=== PATIENT | male | born 1990 | race Two or more races ===

== ENCOUNTER 2018-12-01 17:52 | Observation (INO) ==
[2018-12-01 18:33] LABS: Basophils # 0.1 K/mm3 (0-0.2); Basophils % 0.7 % (0.1-2.0); Eosinophils # 0.3 K/mm3 (0.0-0.4); Eosinophils % 2.9 % (0.1-12.0); Hematocrit 43.8 % (42.0-52.0); Hemoglobin 14.3 g/dL (14.1-18.0); Lymphocytes # 3.2 K/mm3 (0.7-4.5); Lymphocytes % 29.9 % (10-50); Mean Corpuscular HGB Conc 32.7 g/dL (31.8-35.4); Mean Platelet Volume 6.4 fl (7.4-10.4); Monocytes # 0.8 K/mm3 (0.1-1.0); Neutrophils # 6.5 K/mm3 (1.8-7.8); Neutrophils % 59.4 % (37.0-80.0); Platelet Count 405 K/mm3 (142-424); Red Blood Count 4.47 M/mm3 (4.60-6.20); Red Cell Distribution Width 13.5 % (11.5-17.5); White Blood Count 10.9 K/mm3 (4.8-10.8)
[2018-12-01 18:47] LABS: Albumin Level 3.4 gm/dL (3.4-5.0); Calcium 8.7 mg/dL (8.5-10.1)
[2018-12-01 19:01] LABS: Microscopic, Urine URINE MICROSCOPIC (MICROSCOPIC)
[2018-12-01 19:02] LABS: Albumin/Globulin Ratio 0.9 (1.1-1.8); Anion Gap 17.7 mEq/L (5-15); Bilirubin,Total 0.2 mg/dL (0.2-1.0); Globulin 3.8 gm/dl (1.3-3.2); Potassium 3.7 mmoL/L (3.5-5.1); Total Protein,Serum 7.2 gm/dL (6.4-8.2)
[2018-12-01 19:02] LABS: Appearance,Urine CLEAR (Clear); Bilirubin,Urine Negative (Negative); Blood, Urine Negative (Negative); Color,Urine STRAW (Yellow); Glucose,Urine (UA) Negative (Negative); Ketones,Urine Negative (Negative); Leukocyte Esterase,Urine Negative (Negative); Protein,Urine Negative (Negative); Specific Gravity, Urine <= 1.005 (1.005-1.030); Urobilinogen,Urine 0.2 EU/dl (0.2)
--- NOTE | 2018-12-01 19:03 | Emergency Department Note ---
ED Disposition Clinical Impression: Diverticulitis, Colitis, Alcohol abuse Hematemesis Qualifiers: Nausea presence: unspecified Qualified Code(s): K92.0 - Hematemesis Disposition: Admitted as Observation Condition on Discharge: Fair - Critical Care Critical Care Time: No Attestation: On 12/01/18, the high probability of a clinically significant, sudden or life threatening deterioration of the following system(s) required my full and direct attention, intervention and personal management. The time I documented below is in addition to time spent performing reported procedures but includes the following listed in this critical care notation. Medical Decision Making - Abilio Inquiry Pt receiving controlled substance: Yes Abilio was queried for this patient: No Reason not queried -: Emergent pt cond-no time Risks and benefits of using a controlled substance: were not discussed with pt by me Vital Signs: 12/01/18 17:59 12/01/18 18:53 Temperature 97.9 F Temperature Source Oral Pulse Rate [Right Radial] 98 H 84 Respiratory Rate 18 18 Blood Pressure [Right Arm] 138/95 H 138/84 Blood Pressure Mean [Right Arm] 109 102 Blood Pressure Source [Right Arm] Automatic Cuff Automatic Cuff Blood Pressure Position [Right Arm] Sitting Sitting 02 Sat by Pulse Oximetry 99 97 Oxygen Delivery Method Room Air Room Air - Lab Data Lab Results 12/01/18 18:20: WBC 10.9 H, RBC 4.47 L, Hgb 14.3, Hct 43.8, MCV 98.0 H, MCH 32.0 H, MCHC 32.7, RDW 13.5, Plt Count 405, MPV 6.4 L, Neut % (Auto) 59.4, Lymph % (Auto) 29.9, [place] % (Auto) 7.0, Eos % (Auto) 2.9, Baso % (Auto) 0.7, Neut # (Auto) 6.5, Lymph # (Auto) 3.2, [place] # (Auto) 0.8, Eos # (Auto) 0.3, Baso # (Auto) 0.1 12/01/18 18:20: Sodium 142, Potassium 3.7, Chloride 104, Carbon Dioxide 24, Anion Gap 17.7 H, BUN 9 D, Creatinine 1.05, Estimated Creat Clear 134, Estimated GFR 84, Est GFR ( Amer) 102, Glucose 110 H, Calcium 8.7, Total Bilirubin 0.2, AST 41 H, ALT 99 H, Alkaline Phosphatase 55, Total Protein 7.2, Albumin 3.4, Globulin 3.8 H, Albumin/Globulin Ratio 0.9 L, Lipase 336 12/01/18 18:20: Plasma/Serum Alcohol 235 H 12/01/18 18:20: PT 9.2 L, INR 0.89 L 12/01/18 18:30: Urine Opiates Screen Negative, Urine Methadone Screen Negative, Ur Barbituates Screen Negative, Ur Phencyclidine Scrn Negative, Ur Amphetamines Screen Negative, U Benzodiazepines Scrn Negative, Urine Cocaine Screen Negative, U Marijuana (THC) Screen Negative 12/01/18 18:32: Urine Color Straw, Urine Appearance Clear, Urine pH 6.0, Ur Specific [place] <= 1.005, Urine Protein Negative, Urine Glucose (UA) Negative, Urine Ketones Negative, Urine Blood Negative, Urine Nitrate Negative, Urine Bilirubin Negative, Urine Urobilinogen 0.2, Ur Leukocyte Esterase Negative, Urine RBC None, Urine WBC None, Ur Squamous Epith Cells Occasional, Urine Bacteria None Result diagrams: 12/01/18 18:20 12/01/18 18:20 Orders (Tests/Meds): ED MEDICATIONS Generic Name Dose Route Start Last Admin Trade Name Freq PRN Reason Stop Dose Admin Levofloxacin/Dextrose 750 mg in 150 mls @ 100 mls/hr 12/01/18 19:45 Levofloxacin 750mg/150ml Premix IV 12/15/18 19:44 Q24H KATHERYN Protocol Metronidazole 500 mg in 100 mls @ 100 mls/hr 12/01/18 19:45 12/01/18 20:00 Flagyl 500mg/100ml Ivpb IV 12/15/18 19:44 100 mls/hr Q8H KATHERYN Administration Protocol Pantoprazole Sodium 40 mg 12/01/18 21:00 12/01/18 20:01 Protonix 40mg Vial IV 12/31/18 20:59 40 mg BID KATHERYN Administration Sodium Chloride 10 ml 12/01/18 18:10 Saline Flush 10ml Syringe IV 12/31/18 18:09 NEEDED PRN Maintain IV Site Discontinued Medications Generic Name Dose Route Start Last Admin Trade Name Freq PRN Reason Stop Dose Admin Iopamidol 75 ml 12/01/18 19:17 12/01/18 19:18 [id number]; 75ml Vial IV 12/01/18 19:18 75 ml ONCE ONE Administration Protocol Morphine Sulfate 4 mg 12/01/18 19:45 12/01/18 20:01 Morphine 4mg/Ml Syringe IV 12/01/18 19:46 4 mg ONCE ONE Administration Ondansetron HCl 4 mg 12/01/18 19:45 12/01/18 20:01 Zofran 4mg/2ml Vial IV 12/01/18 19:46 4 mg ONCE ONE Administration Sodium Chloride 10 ml 12/01/18 19:17 12/01/18 19:18 Rad-Saline Flush 10ml Syringe IV 12/01/18 19:18 10 ml ONCE ONE Administration ORDERS Category Date Time Status CT abdomen pelvis w con Stat Cat Scan 12/01/18 18:10 Taken UA [Urinalysis and Microscopic] Stat Lab 12/01/18 18:32 Ordered - CT Data CT Scan: Abdomen, Pelvis Time Received: 19:[address] Reviewed: Yes: I have viewed the radiologist's interpretation Findings Narrative: CT scan interpreted by [facility] radiologist. Faxed report received and reviewed: Low attenuation bowel wall thickening in the right colon and transverse colon and descending colon consistent with colitis. Differential diagnosis includes infectious and inflammatory etiologies. Mild pericolonic inflammatory changes at the junction of the descending colon and rectosigmoid may represent mild diverticulitis in the appropriate clinical setting. - Physician Consults Physician Consulted: Christy Time: 19:44 Reason -: Surgical Eval/Care Comment/Response: Discussed case. Feels it would be best to admit patient given the multiplicity of problems. He can see the patient and likely perform endoscopy tomorrow. N.p.o. after midnight. Additional Consult: Sherron Time: 19:51 Reason -: Admission Comment/Response: Agrees to admit the patient to the hospital. We discussed the patient's clinical information, including history, exam, laboratory and radiology results and ED course. Per hospital procedure, I will write temporary bridge inpatient orders on the patient. Specific orders requested by the admitting physician: Protonix, IV fluids, Levaquin and Flagyl, surgical consult, withdrawal protocol General Adult HPI - General Chief complaint: Abdominal Pain Stated complaint: Lower abd pain, vomiting blood Time Seen by Provider: 12/01/18 19:02 Mode of Arrival: Ambulatory Limitations: No Limitations Description of Symptoms (Recalled from ER Triage Doc. by RN): Pt reports lower abd that he describes at stabbing in nature, pt reports vomitting x1 today with dark blood noted in emesis. Pt reports seen in ER lastnight and left against MD advise, pt reports he felt okay t/o the night but has been having worsening pain for the past couple of hours - History of Present Illness HPI narrative: Patient complains of abdominal pain and vomiting of blood. States this is been going on for a couple of months. Vomits blood every couple of weeks. Has intermittent pain which she describes as being in his left lower quadrant. Seen in this emergency room last night for the same complaints. Physician recom mended admission, but the patient refused and signed out AGAINST MEDICAL ADVICE. He says that he drank a couple of small drinks of alcohol this morning, less than a shots per drink, at 7 AM. Denies alcohol intake since then. States that he vomited once today, dark blood. Had a bowel movement today which was neither red nor black. Has had intermittent black stool over the past couple of months. No history of abdominal surgeries. Denies drug use. - Related Data Previous Rx's Medication Instructions Recorded Pantoprazole Sodium [Protonix 40mg 40 mg PO DAILY 30 Days #30 tab 11/30/18 tablet] Sucralfate [Carafate 1gm Tab] 1 gm PO QID 10 Days #40 tab 11/30/18 Allergies Allergy/AdvReac Type Severity Reaction Status Date / Time No Known Allergies Allergy Verified 11/10/18 11:44 [facility] History - Hepatitis A Screen Drug use history?: No High risk sexual behaviors?: No History of sexually transmitted infection?: No Currently employed?: No Childcare worker?: No Do you have indoor plumbing?: Yes Do you have electricity?: Yes Attestation statement:: This patient has been screened for Hepatitis A risk factors. I have reviewed the patient's past medical history: Yes Medical History: Denies:: Diabetes Mellitus Type 1, Diabetes Mellitus Type 2 - Social History Smoking Status: Current every day smoker Tobacco Type: cigarettes Alcohol Intake: current Alcohol Intake Frequency:: 3 or more drinks per day Occupational Status: employed Housing: house - Psychiatric History Expresses thoughts of harming self/others: None Suicide Plan Description: No Plan ROS Obtained: Yes All systems reviewed & no additional complaints - Constitutional Constitutional: Denies fever(s) - Cardiovascular Cardiovascular: Denies chest pain - Gastrointestinal Gastrointestingal: Reports: abdominal pain, vomiting blood, black, tarry stools (Intermittent times 2 months) Physical Exam - General General appearance: alert, in no apparent distress Comment: Smell of alcohol on breath - Head Head exam: atraumatic, normocephalic - Eye Eye exam: Present: normal appearance, PERRL, EOMI - ENT ENT exam: Present: mucous membranes moist - Chest Chest inspection: Present: normal inspection, symmetric chest wall rise - Respiratory Respiratory exam: Present: normal lung sounds bilaterally. Absent: respiratory distress - Cardiovascular Cardiovascular exam: Present: regular rate, normal rhythm, normal heart sounds - Abdominal Exam Abdominal exam: Present: soft, tenderness. Absent: distention Abdominal tenderness: Present: diffuse (Most tender in left lower quadrant) - Extremities Exam Extremities exam: Present: normal inspection - Neurological Exam Neurological exam: Present: alert, oriented X3 - Psychiatric Psychiatric exam: Present: anxious - Skin Skin exam: Present: warm, dry
[2018-12-01 19:24] LABS: INR 0.89 (0.9-1.1); Prothrombin Time 9.2 seconds (9.4-11.8)
[2018-12-01 19:50] LABS: Squamous Epithelial Cell,Urine Occasional #/hpf (0-5)
[2018-12-01 19:58] LABS: Amphetamine/Metha Screen,Urine Negative ng/mL (<1000); Barbiturates Screen,Urine Negative ng/mL (<200); Benzodiazepines Screen,Urine Negative ng/mL (<200); Cannabinoid Screen,Urine Negative ng/mL (<50); Cocaine Screen,Urine Negative ng/mL (<300); Methadone Screen,Urine Negative ng/mL (<300); Opiate Screen,Urine Negative ng/mL (<300); Phencyclidine Screen,Urine Negative ng/mL (<25)
[2018-12-01 21:10] LABS: Phosphorous 3.1 mg/dL (2.4-4.9)
--- NOTE | 2018-12-02 07:47 | Pharmacy Consult Notes ---
[facility] Pharmacy VTE Monitoring - Patient Demographics Admission date: 12/01/18 Report Date: 12/02/18 Time: 07:46 Allergies/Adverse Reactions: Patient Allergies No Known Allergies Allergy (Verified 11/10/18 11:44) Height: 1.8 m Weight: 89.613 kg Patient Problems: Current Active Problems Hematemesis (Acute) Diverticulitis (Acute) Colitis (Acute) Alcohol abuse (Acute) - VTE Risk Labs: VTE Related Lab Results Hgb 14.3 g/dL (14.1-18.0) 12/01/18 18:20 Hct 43.8 % (42.0-52.0) 12/01/18 18:20 Plt Count 405 K/mm3 (142-424) 12/01/18 18:20 PT 9.2 seconds (9.4-11.8) L 12/01/18 18:20 INR 0.89 (0.9-1.1) L 12/01/18 18:20 APTT 23.6 seconds (23.6-34.0) 12/01/18 18:20 BUN 9 mg/dL (7-18) D 12/01/18 18:20 Creatinine 1.05 mg/dL (0.70-1.30) 12/01/18 18:20 Estimated Creat Clear 134 mL/min (50-200) 12/01/18 18:20 VTE Score: 0 - Prophylaxis VTE Prophylaxis Ordered?: Yes Types of VTE Prophylaxis: TEDS Knee High Location of Applied Device: Bilateral Lower Extremeties - VTE Diagnosis Confirmed Treatment or plan recommended: Continue Current Treatment
--- NOTE | 2018-12-02 08:01 | Consult Report ---
*Admission Date: 12/01/18 *Chief complaint: Vomiting of blood *History of present illness: Patient is a 28-year-old male apparent history of regular alcohol consumption. He presented to the emergency department the day before last complaining of a 2- month history of intermittent vomiting of blood. It had become progressively more severe. He was seen in the emergency department in the evening. Hemoglobin was 13 with hematocrit of 41 at that time. Recommendations were for admission but the patient left AMA. He presented back to the emergency department last night with ongoing symptoms. At this time he actually had increasing hemoglobin and hematocrit of 14 and 44. However, the patient did have some abdominal pain. He underwent CT scan which interestingly revealed findings of possible descending colon colitis. He was noted to have a serum alcohol level of 235. He was noted to have some mild increase in transaminases on both evaluations in the emergency department. Review of Systems - Constitutional Denies body ache(s) - Eyes Denies change in vision - ENT Denies dizziness - *Cardiovascular Denies shortness of breath - *Respiratory Denies shortness of breath - *Gastrointestinal Reports abdominal pain, Reports vomiting blood, Denies black, tarry stools [facility] History Medical History: Denies:: Diabetes Mellitus Type 1, Diabetes Mellitus Type 2 Have you ever received a pneumonia vaccine?: No Have you received a flu vaccine this season?: No - *Social History Smoking Status: Current every day smoker Tobacco Type: cigarettes # Packs/Day (cigarettes): 1 Alcohol Intake: current Alcohol Intake Frequency:: 3 or more drinks per day Occupational Status: employed Housing: house Household Members: significant other Travel in the last 8 weeks: None - Psychiatric History Expresses thoughts of harming self/others: None Suicide Plan Description: No Plan Meds Home Medications Medication Instructions Recorded Confirmed Type Pantoprazole Sodium [Protonix 40mg 40 mg PO DAILY 30 Days #30 tab 11/30/18 12/01/18 Rx tablet] Sucralfate [Carafate 1gm Tab] 1 gm PO QID 10 Days #40 tab 11/30/18 12/01/18 Rx Allergies Allergy/AdvReac Type Severity Reaction Status Date / Time No Known Allergies Allergy Verified 11/10/18 11:44 Exam Vital signs and Labs for Last 24 Hours: Temp Pulse Resp BP Pulse Ox 98.1 F 94 H 16 131/89 99 12/02/18 07:51 12/02/18 07:51 12/02/18 07:51 12/02/18 07:51 12/02/18 07:51 Laboratory Results - last 24 hr 12/01/18 18:20: WBC 10.9 H, RBC 4.47 L, Hgb 14.3, Hct 43.8, MCV 98.0 H, MCH 32.0 H, MCHC 32.7, RDW 13.5, Plt Count 405, MPV 6.4 L, Neut % (Auto) 59.4, Lymph % (Auto) 29.9, [place] % (Auto) 7.0, Eos % (Auto) 2.9, Baso % (Auto) 0.7, Neut # (Auto) 6.5, Lymph # (Auto) 3.2, [place] # (Auto) 0.8, Eos # (Auto) 0.3, Baso # (Auto) 0.1 12/01/18 18:20: Sodium 142, Potassium 3.7, Chloride 104, Carbon Dioxide 24, Anion Gap 17.7 H, BUN 9 D, Creatinine 1.05, Estimated Creat Clear 134, Estimated GFR 84, Est GFR ( Amer) 102, Glucose 110 H, Calcium 8.7, Total Bilirubin 0.2, AST 41 H, ALT 99 H, Alkaline Phosphatase 55, Total Protein 7.2, Albumin 3.4, Globulin 3.8 H, Albumin/Globulin Ratio 0.9 L, Lipase 336 12/01/18 18:20: Plasma/Serum Alcohol 235 H 12/01/18 18:20: PT 9.2 L, INR 0.89 L 12/01/18 18:20: APTT 23.6 12/01/18 18:20: Phosphorus 3.1, Magnesium 2.2 12/01/18 18:30: Urine Opiates Screen Negative, Urine Methadone Screen Negative, Ur Barbituates Screen Negative, Ur Phencyclidine Scrn Negative, Ur Amphetamines Screen Negative, U Benzodiazepines Scrn Negative, Urine Cocaine Screen Negative, U Marijuana (THC) Screen Negative 12/01/18 18:32: Urine Color Straw, Urine Appearance Clear, Urine pH 6.0, Ur Specific [place] <= 1.005, Urine Protein Negative, Urine Glucose (UA) Negative, Urine Ketones Negative, Urine Blood Negative, Urine Nitrate Negative, Urine Bilirubin Negative, Urine Urobilinogen 0.2, Ur Leukocyte Esterase Negative, Urine RBC None, Urine WBC None, Ur Squamous Epith Cells Occasional, Urine Bacteria None I & O for Last 24 hours: Intake & Output 11/29/18 11/30/18 12/01/18 12/02/18 11:59 11:59 11:59 11:59 Intake Total 1100 / 1100 Balance 1100 / 1100 Weight 197 lb 9 oz - *Routine HEENT Exam Head: Present: normocephalic Eye: Present: EOMI, PERRL ENT: Present: mucous membranes moist - *Routine Neck Exam Present: supple. Absent: lymphadenopathy - *Routine Respiratory Exam Present: CTA bilaterally - *Routine Cardiovascular Exam Present: RRR - *Routine Abdominal Exam Present: soft, normoactive bowel sounds, tenderness Comments: Diffuse abdominal tenderness more pronounced in left upper and left lower quadrant. - *Routine Extremities Exam Absent: cyanosis, clubbing, edema - *Routine Skin Exam Present: warm. Absent: rash - *Routine Neurological Exam Present: alert, oriented X3 - Detailed Eye Exam Eyelids: Left normal inspection Results - Labs 12/01/18 18:20 12/01/18 18:20 Laboratory Results - last 24 hr 12/01/18 18:20: WBC 10.9 H, RBC 4.47 L, Hgb 14.3, Hct 43.8, MCV 98.0 H, MCH 32.0 H, MCHC 32.7, RDW 13.5, Plt Count 405, MPV 6.4 L, Neut % (Auto) 59.4, Lymph % (Auto) 29.9, [place] % (Auto) 7.0, Eos % (Auto) 2.9, Baso % (Auto) 0.7, Neut # (Auto) 6.5, Lymph # (Auto) 3.2, [place] # (Auto) 0.8, Eos # (Auto) 0.3, Baso # (Auto) 0.1 12/01/18 18:20: Sodium 142, Potassium 3.7, Chloride 104, Carbon Dioxide 24, Anion Gap 17.7 H, BUN 9 D, Creatinine 1.05, Estimated Creat Clear 134, Estimated GFR 84, Est GFR ( Amer) 102, Glucose 110 H, Calcium 8.7, Total Bilirubin 0.2, AST 41 H, ALT 99 H, Alkaline Phosphatase 55, Total Protein 7.2, Albumin 3.4, Globulin 3.8 H, Albumin/Globulin Ratio 0.9 L, Lipase 336 12/01/18 18:20: Plasma/Serum Alcohol 235 H 12/01/18 18:20: PT 9.2 L, INR 0.89 L 12/01/18 18:20: APTT 23.6 12/01/18 18:20: Phosphorus 3.1, Magnesium 2.2 12/01/18 18:30: Urine Opiates Screen Negative, Urine Methadone Screen Negative, Ur Barbituates Screen Negative, Ur Phencyclidine Scrn Negative, Ur Amphetamines Screen Negative, U Benzodiazepines Scrn Negative, Urine Cocaine Screen Negative, U Marijuana (THC) Screen Negative 12/01/18 18:32: Urine Color Straw, Urine Appearance Clear, Urine pH 6.0, Ur Specific [place] <= 1.005, Urine Protein Negative, Urine Glucose (UA) Negative, Urine Ketones Negative, Urine Blood Negative, Urine Nitrate Negative, Urine Bilirubin Negative, Urine Urobilinogen 0.2, Ur Leukocyte Esterase Negative, Urin e RBC None, Urine WBC None, Ur Squamous Epith Cells Occasional, Urine Bacteria None Assessment and Plan - Assessment and plan all Dx Assessment and Plan for all problems:: Extremely low likelihood of active upper GI source of blood loss. I will review the CT scan with radiology. I am going to send a hepatitis panel as well. May proceed with EGD to rule out indolent source of bleeding.
--- NOTE | 2018-12-02 08:27 | History & Physical Report ---
*Admission Date: 12/01/18 <Michelle Boateng 12/02/18 08:35> *Chief complaint: abdominal pain, hematemesis <Michelle Boateng 12/02/18 08:35> *History of present illness: Mr. Pozo is a 28-year-old male who presented to the emergency room with left-sided abdominal pain and hematemesis. He has been to the ER twice now and the ER physician initially recommended admission, but the patient left AMA. He states he has been having problems with his stomach since August 2018. He has been vomiting blood off and on since that time. He has also had diarrhea and abdominal pain. He takes ranitidine occasionally for some reflux. He states he does drink approximately one fourth of 1/5 of alcohol daily. Since he began vomiting blood, he has tried to back off of the hard liquor and drink beer. On his initial presentation to the ER, his hemoglobin was 13 with hematocrit of 41. Last night when he came back to the ER, he actually had an increasing hemoglobin and hematocrit of 14 and 44[address] He underwent [address] scan which revealed findings of possible descending colon colitis. He was n oted to have a serum alcohol level of 235. He was also noted to have some mild increase in transaminases on both evaluations in the emergency department. He was admitted for further evaluation and treatment. <Michelle Boateng 12/02/18 08:35> [facility] History I have reviewed the patient's past medical history: Yes <Michelle Boateng 12/02/18 08:35> Medical History: Denies:: Coronary Artery Disease, Diabetes Mellitus Type 1, Diabetes Mellitus Type 2, Hyperlipidemia, Hypertension <Michelle Boateng 12/02/18 08:35> Have you ever received a pneumonia vaccine?: No <Michelle Boateng 12/02/18 08:35> Have you received a flu vaccine this season?: No <Michelle Boateng 12/02/18 08:35> Other Surgeries: Yes: No Previous Surgery <Michelle Boateng 12/02/18 08:35> - *Social History Smoking Status: Current every day smoker <Michelle Boateng 12/02/18 08:35> Tobacco Type: cigarettes <Michelle Boateng 12/02/18 08:35> # Packs/Day (cigarettes): 1 <KiloMichelle 12/02/18 08:35> Alcohol Intake: current <KiloMichelle 12/02/18 08:35> Alcohol Intake Frequency:: 3 or more drinks per day <KiloMichelle 12/02/18 08:35> Occupational Status: employed <KiloMichelle 12/02/18 08:35> Housing: house <KiloMichelle 12/02/18 08:35> Household Members: significant other <KiloMichelle 12/02/18 08:35> Travel in the last 8 weeks: None <KiloMichelle 12/02/18 08:35> - Psychiatric History Expresses thoughts of harming self/others: None <KiloMichelle 12/02/18 08:35> Suicide Plan Description: No Plan <KiloMichelle 12/02/18 08:35> *Family Hx:: Heart Attack, Stroke <KiloMichelle 12/02/18 08:35> Review of Systems - Constitutional Reports weakness, Denies body ache(s) <KiloMichelle 12/02/18 08:35> - Eyes Denies blurry vision, Denies double vision <KiloMichelle 12/02/18 08:35> - ENT Denies nasal congestion, Denies sore throat <KiloMichelle 12/02/18 08:35> - *Cardiovascular Denies chest pain, Denies rapid, pounding, or irregular heartbeat <Chuy Boatenga 12/02/18 08:35> - *Respiratory Denies cough, Denies shortness of breath <KiloMichelle 12/02/18 08:35> - *Gastrointestinal Reports abdominal pain (left sided), Reports coffee ground vomit, Reports heartburn, Reports heartburn, Reports vomiting blood, Reports loose stools, Reports nausea, Reports vomiting <KiloMichelle 12/02/18 08:35> - *Genitourinary Denies difficulty urinating, Denies painful urination <Michelle Boateng 12/02/18 08:35> - *Musculoskeletal Denies joint pain, Denies muscle cramps <Michelle Boateng 12/02/18 08:35> - *Neurologic Reports headache(s), Denies dizziness, Denies dizziness, Denies weakness <Michelle Boateng - 12/02/18 08:35> Meds Home Medications Medication Instructions Recorded Confirmed Type Pantoprazole Sodium [Protonix 40mg 40 mg PO DAILY 30 Days #30 tab 11/30/18 12/01/18 Rx tablet] Sucralfate [Carafate 1gm Tab] 1 gm PO QID 10 Days #40 tab 11/30/18 12/01/18 Rx <John Siu - 12/02/18 08:47> Allergies Allergy/AdvReac Type Severity Reaction Status Date / Time No Known Allergies Allergy Verified 11/10/18 11:44 <John Siu - 12/02/18 08:47> Exam Vital signs and Labs for Last 24 Hours: Temp Pulse Resp BP Pulse Ox 98.1 F 94 H 18 131/89 99 12/02/18 07:51 12/02/18 07:51 12/02/18 08:13 12/02/18 07:51 12/02/18 07:51 Laboratory Results - last 24 hr 12/01/18 18:20: WBC 10.9 H, RBC 4.47 L, Hgb 14.3, Hct 43.8, MCV 98.0 H, MCH 32.0 H, MCHC 32.7, RDW 13.5, Plt Count 405, MPV 6.4 L, Neut % (Auto) 59.4, Lymph % (Auto) 29.9, [place] % (Auto) 7.0, Eos % (Auto) 2.9, Baso % (Auto) 0.7, Neut # (Auto) 6.5, Lymph # (Auto) 3.2, [place] # (Auto) 0.8, Eos # (Auto) 0.3, Baso # (Auto) 0.1 12/01/18 18:20: Sodium 142, Potassium 3.7, Chloride 104, Carbon Dioxide 24, Anion Gap 17.7 H, BUN 9 D, Creatinine 1.05, Estimated Creat Clear 134, Estimated GFR 84, Est GFR ( Amer) 102, Glucose 110 H, Calcium 8.7, Total Bilirubin 0.2, AST 41 H, ALT 99 H, Alkaline Phosphatase 55, Total Protein 7.2, Albumin 3.4, Globulin 3.8 H, Albumin/Globulin Ratio 0.9 L, Lipase 336 12/01/18 18:20: Plasma/Serum Alcohol 235 H 12/01/18 18:20: PT 9.2 L, INR 0.89 L 12/01/18 18:20: APTT 23.6 12/01/18 18:20: Phosphorus 3.1, Magnesium 2.2 12/01/18 18:30: Urine Opiates Screen Negative, Urine Methadone Screen Negative, Ur Barbituates Screen Negative, Ur Phencyclidine Scrn Negative, Ur Amphetamines Screen Negative, U Benzodiazepines Scrn Negative, Urine Cocaine Screen Negative, U Marijuana (THC) Screen Negative 12/01/18 18:32: Urine Color Straw, Urine Appearance Clear, Urine pH 6.0, Ur Specific [place] <= 1.005, Urine Protein Negative, Urine Glucose (UA) Negative, Urine Ketones Negative, Urine Blood Negative, Urine Nitrate Negative, Urine Bilirubin Negative, Urine Urobilinogen 0.2, Ur Leukocyte Esterase Negative, Urine RBC None, Urine WBC None, Ur Squamous Epith Cells Occasional, Urine Bacteria None <SherronJohn Jeovany - 12/02/18 08:47> Temp Pulse Resp BP Pulse Ox 98.1 F 94 H 18 131/89 99 12/02/18 07:51 12/02/18 07:51 12/02/18 08:13 12/02/18 07:51 12/02/18 07:51 Laboratory Results - last 24 hr 12/01/18 18:20: WBC 10.9 H, RBC 4.47 L, Hgb 14.3, Hct 43.8, MCV 98.0 H, MCH 32.0 H, MCHC 32.7, RDW 13.5, Plt Count 405, MPV 6.4 L, Neut % (Auto) 59.4, Lymph % (Auto) 29.9, [place] % (Auto) 7.0, Eos % (Auto) 2.9, Baso % (Auto) 0.7, Neut # (Auto) 6.5, Lymph # (Auto) 3.2, [place] # (Auto) 0.8, Eos # (Auto) 0.3, Baso # (Auto) 0.1 12/01/18 18:20: Sodium 142, Potassium 3.7, Chloride 104, Carbon Dioxide 24, Anion Gap 17.7 H, BUN 9 D, Creatinine 1.05, Estimated Creat Clear 134, Estimated GFR 84, Est GFR ( Amer) 102, Glucose 110 H, Calcium 8.7, Total Bilirubin 0.2, AST 41 H, ALT 99 H, Alkaline Phosphatase 55, Total Protein 7.2, Albumin 3.4, Globulin 3.8 H, Albumin/Globulin Ratio 0.9 L, Lipase 336 12/01/18 18:20: Plasma/Serum Alcohol 235 H 12/01/18 18:20: PT 9.2 L, INR 0.89 L 12/01/18 18:20: APTT 23.6 12/01/18 18:20: Phosphorus 3.1, Magnesium 2.2 12/01/18 18:30: Urine Opiates Screen Negative, Urine Methadone Screen Negative, Ur Barbituates Screen Negative, Ur Phencyclidine Scrn Negative, Ur Amphetamines Screen Negative, U Benzodiazepines Scrn Negative, Urine Cocaine Screen Negative, U Marijuana (THC) Screen Negative 12/01/18 18:32: Urine Color Straw, Urine Appearance Clear, Urine pH 6.0, Ur Specific [place] <= 1.005, Urine Protein Negative, Urine Glucose (UA) Negative, Urine Ketones Negative, Urine Blood Negative, Urine Nitrate Negative, Urine Bilirubin Negative, Urine Urobilinogen 0.2, Ur Leukocyte Esterase Negative, Urine RBC None, Urine WBC None, Ur Squamous Epith Cells Occasional, Urine Bacteria None <Michelle Boateng - 12/02/18 08:35> I & O for Last 24 hours: Intake & Output 11/29/18 11/30/18 12/01/18 12/02/18 11:59 11:59 11:59 11:59 Intake Total 1100 / 1100 Balance 1100 / 1100 Weight 197 lb 9 oz <John Siu Jeovany - 12/02/18 08:47> Intake & Output 11/29/18 11/30/18 12/01/18 12/02/18 11:59 11:59 11:59 11:59 Intake Total 1100 / 1100 Balance 1100 / 1100 Weight 197 lb 9 oz <Michelle Boateng - 12/02/18 08:35> - Constitutional no acute distress <Michelle Boateng - 12/02/18 08:35> - *Routine HEENT Exam Head: Present: normocephalic <Michelle Boateng 12/02/18 08:35> Eye: Present: EOMI, PERRL <Michelle Boateng 12/02/18 08:35> ENT: Present: mucous membranes moist <Michelle Boateng 12/02/18 08:35> - *Routine Neck Exam Present: supple. Absent: lymphadenopathy <Michelle Boateng 12/02/18 08:35> - *Routine Respiratory Exam Present: CTA bilaterally <Michelle Boateng 12/02/18 08:35> - *Routine Cardiovascular Exam Present: RRR <Michelle Boateng 12/02/18 08:35> - *Routine Abdominal Exam Present: soft, normoactive bowel sounds, tenderness (on the entire left abdomen) <Michelle Boateng 12/02/18 08:35> - *Routine Extremities Exam Absent: cyanosis, clubbing, edema <Michelle Boateng 12/02/18 08:35> - *Routine Skin Exam Present: warm. Absent: rash <Michelle Boateng 12/02/18 08:35> - *Routine Neurological Exam Present: alert, oriented X3 <Michelle Boateng 12/02/18 08:35> H&P: Result - Impressions Abdominal CT 1. Mild diffuse thickening of the colon consistent with colitis. 2. There is a small focal area of stranding of the mesenteric fat anterior to the descending colon in the left lower quadrant. No adjacent diverticula appare nt. This could be related to epiploic appendagitis or possibly diverticulitis. Consider convalescent follow-up exam with IV and oral contrast to confirm resolution <Michelle Boateng 12/02/18 08:35> Assessment and Plan (1) Alcoholic gastritis with bleeding Current visit: No Status: Acute Category: Medical Code(s): K29.21 - Alcoholic gastritis with bleeding (2) Upper GI hemorrhage Current visit: No Status: Acute Category: Medical Code(s): K92.2 - Gastrointestinal hemorrhage, unspecified (3) Hematemesis Current visit: Yes Status: Acute Qualifiers: Nausea presence: unspecified Qualified Code(s): K92.0 - Hematemesis Category: Medical Code(s): K92.0 - Hematemesis (4) Colitis Current visit: Yes Status: Acute Category: Medical Code(s): K52.9 - Noninfective gastroenteritis and colitis, unspecified (5) Diverticulitis Current visit: Yes Status: Acute Category: Medical Code(s): K57.92 - Diverticulitis of intestine, part unspecified, without perforation or abscess without bleeding (6) Alcohol abuse Current visit: Yes Status: Chronic Category: Medical Code(s): F10.10 - Alcohol abuse, uncomplicated <John Siu - 12/02/18 08:47> (1) Colitis Current visit: Yes Status: Acute Category: Medical Code(s): K52.9 - Noninfective gastroenteritis and colitis, unspecified (2) Diverticulitis Current visit: Yes Status: Acute Category: Medical Code(s): K57.92 - Diverticulitis of intestine, part unspecified, without perforation or abscess without bleeding (3) Hematemesis Current visit: Yes Status: Acute Qualifiers: Nausea presence: unspecified Qualified Code(s): K92.0 - Hematemesis Category: Medical Code(s): K92.0 - Hematemesis (4) Alcoholic gastritis with bleeding Current visit: No Status: Acute Category: Medical Code(s): K29.21 - Alcoholic gastritis with bleeding (5) Upper GI hemorrhage Current visit: No Status: Acute Category: Medical Code(s): K92.2 - Gastrointestinal hemorrhage, unspecified (6) Alcohol abuse Current visit: Yes Status: Chronic Category: Medical Code(s): F10.10 - Alcohol abuse, uncomplicated <Michelle Boateng - 12/02/18 08:22> - Assessment and plan all Dx Assessment and Plan for all problems:: Patient seen and examined. Concur with above assessment and plan. <Sherron,John Jeovany - 12/02/18 08:47> Patient has been started on alcohol withdrawal protocol. He has been started on Levaquin and Flagyl for the colitis and possible diverticulitis. He was started on Protonix IV and surgery was consulted. Dr. Harrison has seen the patient and will possibly plan an EGD. <Michelle Boateng - 12/02/18 08:35>
--- NOTE | 2018-12-02 09:10 | Progress Note ---
[facility] Anesthesia Checklist - Patient Identification Patient Identification: Arm Band, Verbal (Name & ) - Structural Data Admitted From: Inpatient Planned Operative Procedure/s: egd Verified Documents: History and Physical - NPO Status Verified Time NPO: 00:00 - Additional verifications Patient : No Anesthesia Reactions: No Hx Blood Transfusions: No Blood Transfusion Reaction: No Cephalosporin Allergy: No Previous Colonoscopy: No - Cardiovascular Assessment Heart Sounds: S1 & S2 Pulse Strength: Baseline Pulse Rhythm: Regular Peripheral Edema: No - Airway Assessment C-Spine Mobility Assessed: Yes TMJ Mobility Assessed: Yes Dentition: Good Dentition - Neurological Assessment Level of Consciousness: Awake, Alert, Appropriate Hx Seizures: No Numbness or tingling in extremities: No - Anesthesia Plan Anesthesia Risk discussed: Yes Anesthesia Plan: Verified ASA Class: II Anesthesia Type: MAC [facility] History I have reviewed the patient's past medical history: Yes Medical History: Denies:: Coronary Artery Disease, Diabetes Mellitus Type 1, Diabetes Mellitus Type 2, Hyperlipidemia, Hypertension Have you ever received a pneumonia vaccine?: No Have you received a flu vaccine this season?: No Other Surgeries: Yes: No Previous Surgery - *Social History Smoking Status: Current every day smoker Tobacco Type: cigarettes # Packs/Day (cigarettes): 1 Alcohol Intake: current Alcohol Intake Frequency:: 3 or more drinks per day Occupational Status: employed Housing: house Household Members: significant other Travel in the last 8 weeks: None - Psychiatric History Expresses thoughts of harming self/others: None Suicide Plan Description: No Plan *Family Hx:: Heart Attack, Stroke
--- NOTE | 2018-12-02 09:38 | Procedure Note ---
- Procedure: Date: 12/02/18 Procedure Performed:: Esophagogastroduodenoscopy with biopsy Indications:: Patient is a 28-year-old male apparent history of regular alcohol consumption. He presented to the emergency department the day before last complaining of a 2- month history of intermittent vomiting of blood. It had become progressively more severe. He was seen in the emergency department in the evening. Hemoglobin was 13 with hematocrit of 41 at that time. Recommendations were for admission but the patient left AMA. He presented back to the emergency department last night with ongoing symptoms. At this time he actually had increasing hemoglobin and hematocrit of 14 and 44. However, the patient did have some abdominal pain. He underwent CT scan which interestingly revealed findings of possible descending colon colitis. He was noted to have a serum alcohol level of 235. He was noted to have some mild increase in transaminases on both evaluations in the emergency department. Performing Provider:: Vic Harrison MD Referring Provider:: Jeovany Siu MD Sedation:: Propofol Procedure:: Consent was obtained patient was taken to endoscopy procedure room. He was positioned in a decubitus position. Adequate intravenous sedation was achieved with anesthesia titration of propofol. Please note that patient did require a significant amount of propofol for adequate sedation. Olympus endoscope was inserted via the oropharynx. Majority of the esophagus was normal. At the distal esophagus in the region of the gastroesophageal junction there was a somewhat inflamed erosion which showed no evidence of any bleeding at this time and no stigmata of recent bleeding. This is consistent with Skye-Cintron tear from retching and vomiting. Stomach was insufflated. He had some mild diffuse nonerosive gastritis. Retroflexion revealed a moderate sliding hiatal hernia. Pylorus was traversed and in the bulb with some very mild nonerosive duodenitis within the bulb. Distal duodenum was unremarkable. Gastric antral mucosal biopsy was obtained of the mild gastritis. Stomach was desufflated and the endoscope was withdrawn. Findings:: Patient, somewhat inflamed, at gastroesophageal junction without stigmata of recent bleeding Moderate sliding hiatal hernia Mild to moderate diffuse nonerosive gastritis Mild nonerosive duodenitis Recommendations:: Gastritis and duodenitis secondary to lifestyle issues and alcohol intake. The given the reported degree of alcohol consumption along with a hiatal hernia he may have had some hematemesis from vomiting and this appears to be nonbleeding at this time. Recommendation is alcohol cessation and proton pump inhibitors for now. Recommend antibiotics for mild colitis. Hepatitis panel pending Complications:: None immediately apparent Estimated blood obtained (mL): 1
--- NOTE | 2018-12-03 06:46 | Progress Note ---
Subjective Patient reports: feels better (wants to go home) Exam Vital signs and Labs for Last 24 Hours: Temp Pulse Resp BP Pulse Ox 98.2 F 69 16 112/66 99 12/03/18 04:00 12/03/18 04:00 12/03/18 04:00 12/03/18 04:00 12/03/18 04:00 I & O for Last 24 hours: Intake & Output 11/30/18 12/01/18 12/02/18 12/03/18 11:59 11:59 11:59 11:59 Intake Total 1200 / 1200 2291 / 2291 Balance 1200 / 1200 2291 / 2291 Weight 197 lb 9 oz - Constitutional no acute distress - *Routine Respiratory Exam Absent: respiratory distress - *Routine Abdominal Exam Present: soft Progress Note: A&P (1) Alcoholic gastritis with bleeding Status: Acute Current Visit: No (2) Upper GI hemorrhage Status: Acute Assessment and plan: Improving with no sign of active hemorrhage. continue medical management (PPI) OK for D/C home with outpatient follow-up from surgical standpoint see findings/recommendations forwarded below from EGD: Patient, somewhat inflamed, at gastroesophageal junction without stigmata of recent bleeding Moderate sliding hiatal hernia Mild to moderate diffuse nonerosive gastritis Mild nonerosive duodenitis Recommendations:: Gastritis and duodenitis secondary to lifestyle issues and alcohol intake. The given the reported degree of alcohol consumption along with a hiatal hernia he may have had some hematemesis from vomiting and this appears to be nonbleeding at this time. Recommendation is alcohol cessation and proton pump inhibitors for now. Recommend antibiotics for mild colitis. Hepatitis panel pending Current Visit: No (3) Hematemesis Status: Acute Current Visit: Yes (4) Colitis Status: Acute Current Visit: Yes (5) Diverticulitis Status: Acute Current Visit: Yes (6) Alcohol abuse Status: Chronic Current Visit: Yes
[2018-12-03 07:15] LABS: Hepatitis B Core Antibody IgM Negative (Negative); Hepatitis B Surface Antigen Negative (Negative)
--- NOTE | 2018-12-03 08:23 | Progress Note ---
<Michelle Boateng - Last Filed: 12/03/18 08:20> Internal Medicine - PN: Subj *Date: 12/03/18 *Time: 08:20 Interval history: Patient is feeling better today. He has had no further vomiting. He states he is still having significant pain in his left lower quadrant that requiring both pain pills and morphine. He slept and on throughout the night and has been tolerating his current diet. Exam Vital signs and Labs for Last 24 Hours: Temp Pulse Resp BP Pulse Ox 98.2 F 69 16 112/66 99 12/03/18 04:00 12/03/18 04:00 12/03/18 04:00 12/03/18 04:00 12/03/18 04:00 I & O for Last 24 hours: Intake & Output 11/30/18 12/01/18 12/02/18 12/03/18 11:59 11:59 11:59 11:59 Intake Total 1200 / 1200 2531 / 2531 Balance 1200 / 1200 2531 / 2531 Weight 197 lb 9 oz - Constitutional no acute distress - *Routine Respiratory Exam Present: CTA bilaterally - *Routine Cardiovascular Exam Present: RRR - *Routine Abdominal Exam Present: soft, normoactive bowel sounds, tenderness (LLQ) - *Routine Extremities Exam Absent: cyanosis, clubbing, edema Assessment and Plan (1) Alcoholic gastritis with bleeding Current visit: No Status: Acute Category: Medical Code(s): K29.21 - Alcoholic gastritis with bleeding (2) Upper GI hemorrhage Current visit: No Status: Acute Category: Medical Code(s): K92.2 - Gastrointestinal hemorrhage, unspecified (3) Hematemesis Current visit: Yes Status: Acute Qualifiers: Nausea presence: unspecified Qualified Code(s): K92.0 - Hematemesis Category: Medical Code(s): K92.0 - Hematemesis (4) Colitis Current visit: Yes Status: Acute Category: Medical Code(s): K52.9 - Noninfective gastroenteritis and colitis, unspecified (5) Diverticulitis Current visit: Yes Status: Acute Category: Medical Code(s): K57.92 - Diverticulitis of intestine, part unspecified, without perforation or abscess without bleeding (6) Alcohol abuse Current visit: Yes Status: Chronic Category: Medical Code(s): F10.10 - Alcohol abuse, uncomplicated - Assessment and plan all Dx Assessment and Plan for all problems:: Surgery has seen the patient this morning and feels he can be discharged home on a PPI and antibiotics for his colitis. They recommend alcohol cessation. We will advance the patient's diet and if he tolerates this, can discharge home later today. <SherronJohn Thayer - Last Filed: 12/03/18 10:00> Exam Vital signs and Labs for Last 24 Hours: Temp Pulse Resp BP Pulse Ox 98.1 F 72 15 126/80 99 12/03/18 08:00 12/03/18 08:00 12/03/18 08:00 12/03/18 08:00 12/03/18 08:00 I & O for Last 24 hours: Intake & Output 11/30/18 12/01/18 12/02/18 12/03/18 11:59 11:59 11:59 11:59 Intake Total 1200 / 1200 2531 / 2531 Balance 1200 / 1200 2531 / 2531 Weight 197 lb 9 oz Assessment and Plan (1) Alcoholic gastritis with bleeding Current visit: No Status: Acute Category: Medical Code(s): K29.21 - Alcoholic gastritis with bleeding (2) Upper GI hemorrhage Current visit: No Status: Acute Category: Medical Code(s): K92.2 - Gastro intestinal hemorrhage, unspecified (3) Hematemesis Current visit: Yes Status: Acute Qualifiers: Nausea presence: unspecified Qualified Code(s): K92.0 - Hematemesis Category: Medical Code(s): K92.0 - Hematemesis (4) Colitis Current visit: Yes Status: Acute Category: Medical Code(s): K52.9 - Non infective gastroenteritis and colitis, unspecified (5) Diverticulitis Current visit: Yes Status: Acute Category: Medical Code(s): K57.92 - Diverticulitis of intestine, part unspecified, without perforation or abscess without bleeding (6) Alcohol abuse Current visit: Yes Status: Chronic Category: Medical Code(s): F10.10 - Alcohol abuse, uncomplicated - Assessment and plan all Dx Assessment and Plan for all problems:: Patient seen and examined this AM. He appears comfortable although asking for pain meds. Mild tenderness with slight guarding in LLQ. Will advance diet and if tolerated, can be discharged home this afternoon.
[2018-12-03 13:36] LABS: Hepatitis C Antibody <0.1 s/co ratio (0.0-0.9)
--- NOTE | 2018-12-03 15:04 | Discharge Summary ---
General - General Admission date:: 12/01/18 <John Siu - 12/03/18 18:14> 12/01/18 <KiloMichelle - 12/03/18 15:09> Discharge date: 12/03/18 <XavierChuy joycea - 12/03/18 15:09> HPI HPI: Mr. Pozo is a 28-year-old male who presented to the emergency room with left-sided abdominal pain and hematemesis. He has been to the ER twice now and the ER physician initially recommended admission, but the patient left AMA. He states he has been having problems with his stomach since August 2018. He has been vomiting blood off and on since that time. He has also had diarrhea and abdominal pain. He takes ranitidine occasionally for some reflux. He states he does drink approximately one fourth of 1/5 of alcohol daily. Since he began vomiting blood, he has tried to back off of the hard liquor and drink beer. On his initial presentation to the ER, his hemoglobin was 13 with hematocrit of 41. Last night when he came back to the ER, he actually had an increasing hemog lobin and hematocrit of 14 and [address] He [address] scan which revealed findings of possible descending colon colitis. He was noted to have a serum alcohol level of 235. He was also noted to have some mild increase in transaminases on both evaluations in the emergency department. He was admitted for further evaluation and treatment. <XavierMichelle joyce - 12/03/18 15:09> Hospital Course Hospital Course: The patient's abdominal CT showed mild diffuse thickening of the colon consistent with colitis as well as a possible epiploic appendagitis vs diverticulitis. He was admitted and started on alcohol withdrawal protocol as well as Levaquin and Flagyl for the colitis and possible diverticulitis. He was started on IV Protonix and surgery was consulted. Dr. Harrison saw the patient and wanted to do an EGD. The EGD showed an inflamed gastroesophageal junction, sliding hiatal hernia, mild to moderate diffuse nonerosive gastritis, and mild nonerosive duodenitis. He felt that the gastritis and duodenitis were secondary to lifestyle issues and alcohol intake and that the alcohol consumption along with a hiatal hernia may have caused some of the hematemesis from vomiting. There was no active bleeding and he recommended alcohol cessation and PPIs as well as continue antibiotics for colitis. The patient's symptoms improved. He quit vomiting and was able to tolerate a diet. He did ask for medication for pain and was started on oxycodone and continued on morphine as needed. He had a hepatitis profile that was ordered and was negative. He began sleeping well and was stable to be discharged home on antibiotics and a PPI. He will need to f/u with Dr. Harrison in 1 week. <Michelle Boateng - 12/03/18 15:09> Objective Vital signs: Temp Pulse Resp BP Pulse Ox 98.1 F 72 15 126/80 99 12/03/18 08:00 12/03/18 08:00 12/03/18 08:00 12/03/18 08:00 12/03/18 08:00 <John Siu - 12/03/18 18:14> Temp Pulse Resp BP Pulse Ox 98.1 F 72 15 126/80 99 12/03/18 08:00 12/03/18 08:00 12/03/18 08:00 12/03/18 08:00 12/03/18 08:00 <Michelle Boateng - 12/03/18 15:09> Narrative: - Constitutional no acute distress - *Routine HEENT Exam Head: Present: normocephalic Eye: Present: EOMI, PERRL ENT: Present: mucous membranes moist - *Routine Neck Exam Present: supple. Absent: lymphadenopathy - *Routine Respiratory Exam Present: CTA bilaterally - *Routine Cardiovascular Exam Present: RRR - *Routine Abdominal Exam Present: soft, normoactive bowel sounds, tenderness (on the entire left abdomen) - *Routine Extremities Exam Absent: cyanosis, clubbing, edema - *Routine Skin Exam Present: warm. Absent: rash - *Routine Neurological Exam Present: alert, oriented X3 <Michelle Boateng - 12/03/18 15:09> Results Labs on day of discharge: Labs from last 24 hours 12/02/18 08:11 Hepatitis A IgM Ab Negative Hep Bs Antigen Negative Hep B Core IgM Ab Negative Hepatitis C Antibody <0.1 <John Siu - 12/03/18 18:14> Labs from last 24 hours 12/02/18 08:11 Hepatitis A IgM Ab Negative Hep Bs Antigen Negative Hep B Core IgM Ab Negative Hepatitis C Antibody <0.1 <Michelle Boateng 01/31/19 15:09> DS: Diagnosis - Discharge Diagnosis (1) Alcoholic gastritis with bleeding Status: Acute (2) Upper GI hemorrhage Status: Acute (3) Hematemesis Status: Acute (4) Colitis Status: Acute (5) Diverticulitis Status: Acute (6) Alcohol abuse Status: Chronic <Michelle Boateng 12/03/18 14:42> (1) Alcoholic gastritis with bleeding Status: Acute (2) Upper GI hemorrhage Status: Acute (3) Hematemesis Status: Acute (4) Colitis Status: Acute (5) Diverticulitis Status: Acute (6) Alcohol abuse Status: Chronic <John Siu 12/03/18 18:14> Discharge Plan - Patient Discharge Instructions ACTIVITY: Continue current activity <Michelle Boateng 12/03/18 15:09> DIET: other ([place] diet and advance as tolerated) <Michelle Boateng 12/03/18 15:09> Additional Instructions: Avoid alcohol comsumption <John Siu 12/03/18 18:14> Patient Instructions: Upper GI Endoscopy, DI for Hiatal Hernia, DI for Drug or Alcohol Withdrawal, DI for Colitis, DI for Alcoholic Gastritis <John Siu 12/03/18 18:14> Forms: <John Siu 12/03/18 18:14> - Follow up Plan Follow up with: Vic Harrison MD [Staff Physician] - 1 week <John Siu 12/03/18 18:14> Disposition: Home, Self-Care <John Siu 12/03/18 18:14> Home Medications: Home Medications Medication Instructions Recorded Confirmed Type Ciprofloxacin HCl [Cipro 500mg Tab] 500 mg PO BID #20 tab 12/03/18 Rx Omeprazole [Omeprazole 40mg 40 mg PO DAILY #30 cap 12/03/18 Rx Capsule] <John Siu 12/03/18 18:14> Prescriptions/Medication Reconciliation: New Ciprofloxacin HCl [Cipro 500mg Tab] 500 mg PO BID #20 tab Omeprazole [Omeprazole 40mg Capsule] 40 mg PO DAILY #30 cap <John Siu 12/03/18 18:14> - Additional Information Additional Information: Concur with plan for discharge. <John Siu - 12/03/18 18:14>
== END 2018-12-03 14:34 | disposition home or self-care (01) ==
LOC: 2ND 17:52 → ER 17:52 → 2ND 20:52
PROVIDERS: ADMIT Family Medicine; ATTEND Family Medicine
CPT/HCPCS: 36415; 74177; 80053; 80074; 80305; 81001; 83690; 83735; 84100; 85025; 85610; 85730; 99284; G0378; J1956; J2405; Q9967

== ENCOUNTER → 2019-01-01 11:09 | Outpatient (CLI) | payer OTHER, SELFPAY ==
--- NOTE | 2019-01-01 11:13 | CA_ITS ---
CA echo doppler complete PROCEDURE: INDICATIONS FOR THE TEST: Chest pain X COPD Heart Murmur Tobacco SmokingX Palpitations Fatigue Syncope Edema HypertensionXDiabetes Mellitus Rheumatic Fever SOBXDOE Obesity Hyperlipidemia Family History HD Additional History ETOH ABUSE PATIENT INFORMATION HEIGHT: 71 WEIGHT:206 GENDER: Male B/P:189/104 2-D/M-MODE INTERPRETATION: 2-D MEASUREMENTS OBSERVED VALUES IN CMS Right Ventricular Dimension (RVDd) 2.1 Interventricular Septum (Thickness)(IVsd) .8 Left Ventricular Internal Dimensions(LVIDd) 5.0 Left Ventricular Posterior Wall (Thickness)(LVPWd) .8 Aortic Root 2.9 Aortic Cusp Separation 2.0 Left Atrial Dimensions (LAD) 3.3 2D 1. Left atrium is normal size, left ventricle is normal size, there is no concentric left ventricular hypertrophy, visually estimated ejection fraction 55% with no regional wall motion abnormality. 2. The right atrium and right ventricle are normal size and contractility. 3. The aortic, mitral and tricuspid valve are grossly normal. 4. The pulmonic valve is poorly present. 5. No significant pericardial effusion noted. DOPPLER INTERROGATION: Doppler interrogation of the aortic, mitral and tricuspid valvular presence of mild mitral and tricuspid regurgitation, tricuspid regurgitation jet velocity is inadequate for calculation of the right ventricular systolic pressure, diastolic parameters are within normal range. CONCLUSION: 1. Normal left ventricular size, preserved left ventricular systolic function, visually estimated ejection fraction 55% with no regional wall motion abnormality, diastolic parameters are within normal range. 2. Mild mitral and tricuspid regurgitation 3. No significant pericardial effusion noted.
== END ==
PROVIDERS: Visit Provider Nurse Practitioner Family
DX: I10 Essential (primary) hypertension (principal); R00.0 Tachycardia, unspecified; R06.02 Shortness of breath; R07.9 Chest pain, unspecified
CPT/HCPCS: 93306